=== PATIENT | male | born 1960 | race African-American/Black ===

== ENCOUNTER 2017-05-13 14:02 | Emergency (ER) | payer OTHER ==
[~2017-05-13] VITALS: Ht 165.1 cm; Wt 104.9 kg
[2017-05-13 14:42] LABS: HEMATOCRIT 41.3 % (38.0-50.0); MCH 30.5 PG (29.0-34.0); MCHC 34.4 G/DL (30.0-36.0); MCV 88.6 FL (86-99); MEAN PLAT.VOLUME 12.8 uM^3 (9.0-12.4); PLATELET COUNT 170 K/uL (156-360); RBC DIS.WIDTH-SD 45.4 % (39-53); RED BLOOD COUNT 4.66 M/uL (4.00-5.50); WHITE BLOOD COUNT 5.1 K/uL (4.1-10.2)
[2017-05-13 14:52] LABS: CHLORIDE 104 mEq/L (99-109); POTASSIUM 3.2 mEq/L (3.7-5.4)
[2017-05-13 14:53] LABS: SODIUM 145 mEq/L (136-147)
[2017-05-13 14:55] LABS: GLUCOSE 162 mg/dL (70-99)
[2017-05-13 14:56] LABS: ANION GAP 10 MEQ/L (2-14)
[2017-05-13 14:57] LABS: TOTAL BILIRUBIN 0.4 mg/dL (0.0-1.0)
[2017-05-13 14:59] LABS: UREA NITROGEN (BUN) 10 mg/dL (9-23)
[2017-05-13 15:22] LABS: ALKALINE PHOSPHATASE 63 IU/L (3-129)
[2017-05-13 15:24] LABS: GFR ESTIMATE (CALCULATED) > 59 mL/min/
[2017-05-13 16:26] LABS: SERUM ETHYL ALCOHOL < 10 mg/dL
[2017-05-13] MEDS ORDERED: GABAPENTIN300 MG PO (17:48)
[2017-05-13] MEDS ORDERED: ZOLOFT50 MG PO (17:48)
[2017-05-13] MEDS ORDERED: DIVALPROEX SOD500 MG PO (17:48)
[2017-05-13] MEDS ORDERED: MIRTAZAPINE15 MG PO (17:48)
[2017-05-13] MEDS ORDERED: NORVASC10 MG PO (17:48)
[2017-05-13] MEDS ORDERED: LISINOPRIL5 MG PO (17:48)
[2017-05-13] MEDS ORDERED: QUETIAPINE FUM200 MG PO (17:48)
[2017-05-13 18:25] VITALS: BP 136/85
== END 2017-05-13 18:27 | disposition home or self-care (01) ==
LOC: EME 14:02
DX: Z76.0 Encounter for issue of repeat prescription (principal); I10 Essential (primary) hypertension; F31.9 Bipolar disorder, unspecified; F10.21 Alcohol dependence, in remission
CPT/HCPCS: 80053; 81003; 85027; 90839; 99281; 99284; G0480

== ENCOUNTER 2017-09-30 10:32 | Emergency (ER) | payer OTHER ==
[~2017-09-30] VITALS: Ht 165.1 cm; Wt 102.8 kg
[~2017-09-30 10:32] MED LIST: DIVALPROEX SOD500 MG PO; GABAPENTIN300 MG PO; LISINOPRIL5 MG PO; MIRTAZAPINE15 MG PO; NORVASC10 MG PO; QUETIAPINE FUM200 MG PO; ZOLOFT50 MG PO
[2017-09-30 13:54] LABS: ADD MIUA? YES; BILIRUBIN NEGATIVE; BLOOD NEGATIVE; COLOR YELLOW ((YELLOW)); GLUCOSE (STRIP) NEGATIVE; KETONES 5; LEUKOCYTES NEGATIVE; NITRITE NEGATIVE; PROTEIN (STRIP) 30; SPECIFIC GRAVITY 1.016 (1.000-1.030)
[2017-09-30 13:59] LABS: BACTERIA 1+ /HPF; EPITHELIAL CELLS RARE /HPF; MUCUS TRACE /LPF; RED BLOOD CELLS 0-5 /HPF (0-5); UCUL ADDED? NO; WHITE BLOOD CELLS NONE SEEN /HPF (0-5)
[2017-09-30 14:20] LABS: MCH 30.4 PG (29.0-34.0); MCHC 34.1 G/DL (30.0-36.0); MCV 88.9 FL (86-99); MEAN PLAT.VOLUME 12.4 uM^3 (9.0-12.4); PLATELET COUNT 223 K/uL (156-360); RBC DIS.WIDTH-CV 13.2 % (11.8-14.6); RBC DIS.WIDTH-SD 43.3 % (39-53); RED BLOOD COUNT 4.61 M/uL (4.00-5.50); WHITE BLOOD COUNT 4.4 K/uL (4.1-10.2)
[2017-09-30 14:31] LABS: CHLORIDE 105 mEq/L (99-109); POTASSIUM 3.4 mEq/L (3.7-5.4); SODIUM 142 mEq/L (136-147)
[2017-09-30 14:33] LABS: GLUCOSE 99 mg/dL (70-99)
[2017-09-30 14:34] LABS: ANION GAP 12 MEQ/L (2-14)
[2017-09-30 14:35] LABS: TOTAL BILIRUBIN 0.9 mg/dL (0.0-1.0)
[2017-09-30 14:36] LABS: ALKALINE PHOSPHATASE 65 IU/L (3-129)
[2017-09-30 14:37] LABS: GFR ESTIMATE (CALCULATED) > 59 mL/min/
[2017-09-30 14:38] LABS: UREA NITROGEN (BUN) 11 mg/dL (9-23)
[2017-09-30] MEDS ORDERED: MOTRIN600 MG PO (15:52)
[2017-09-30] MEDS ORDERED: TRAMADOL HCL50 MG PO (15:52)
[2017-09-30] MEDS ORDERED: SKELAXIN800 MG PO (15:52)
[2017-09-30 15:57] VITALS: BP 155/94
== END 2017-09-30 15:57 | disposition home or self-care (01) ==
LOC: EME 10:32
PROVIDERS: Physician Assistant
DX: S29.012A Strain of muscle and tendon of back wall of thorax, initial encounter (principal); I10 Essential (primary) hypertension; E11.9 Type 2 diabetes mellitus without complications
CPT/HCPCS: 71020; 80053; 81003; 85027; 99281; 99284; J1885

== ENCOUNTER 2017-11-22 11:06 | Emergency (ER) | payer OTHER ==
[~2017-11-22] VITALS: Ht 165.1 cm; Wt 106.5 kg
[~2017-11-22 11:06] MED LIST changes: +MOTRIN600 MG PO; +SKELAXIN800 MG PO; +TRAMADOL HCL50 MG PO
[2017-11-22 12:34] LABS: HEMATOCRIT 41.3 % (38.0-50.0); HEMOGLOBIN 14.4 G/DL (12.5-16.6); MCH 30.3 PG (29.0-34.0); MCHC 34.9 G/DL (30.0-36.0); MCV 86.8 FL (86-99); PLATELET COUNT 236 K/uL (156-360); RBC DIS.WIDTH-CV 13.8 % (11.8-14.6); RBC DIS.WIDTH-SD 43.8 % (39-53); RED BLOOD COUNT 4.76 M/uL (4.00-5.50); WHITE BLOOD COUNT 4.5 K/uL (4.1-10.2)
[2017-11-22 12:49] LABS: CHLORIDE 106 mEq/L (99-109); POTASSIUM 3.3 mEq/L (3.7-5.4); SODIUM 142 mEq/L (136-147)
[2017-11-22 12:51] LABS: GLUCOSE 135 mg/dL (70-99)
[2017-11-22 12:55] LABS: APPEARANCE CLOUDY ((CLEAR)); BILIRUBIN NEGATIVE; BLOOD NEGATIVE; COLOR YELLOW ((YELLOW)); GLUCOSE (STRIP) NEGATIVE; KETONES NEGATIVE; LEUKOCYTES NEGATIVE; NITRITE NEGATIVE; PROTEIN (STRIP) NEGATIVE; SPECIFIC GRAVITY 1.017 (1.000-1.030); UROBILINOGEN 0.2 MG/DL (0.2-1.0)
[2017-11-22 12:55] LABS: CREATININE 0.9 mg/dL (0.6-1.3); GFR ESTIMATE (CALCULATED) > 59 mL/min/ (58.99-99999); UREA NITROGEN (BUN) 15 mg/dL (9-23)
[2017-11-22] MEDS ORDERED: FLEXERIL10 MG PO (13:06)
[2017-11-22] MEDS ORDERED: LIDODERM 5% P1 PATCH TD (13:06)
[2017-11-22] MEDS ORDERED: MOTRIN800 MG PO (13:06)
[2017-11-22 13:07] LABS: BACTERIA NONE SEEN /HPF; EPITHELIAL CELLS RARE /HPF; MUCUS NONE SEEN /LPF; RED BLOOD CELLS 0-5 /HPF (0-5); WHITE BLOOD CELLS 0-5 /HPF (0-5)
[2017-11-22 13:23] VITALS: BP 192/104
== END 2017-11-22 13:25 | disposition home or self-care (01) ==
LOC: EME 11:06
PROVIDERS: Nurse Practitioner Family
DX: S29.012A Strain of muscle and tendon of back wall of thorax, initial encounter (principal); X50.9XXA Other and unspecified overexertion or strenuous movements or postures, initial encounter; M19.90 Unspecified osteoarthritis, unspecified site; E78.5 Hyperlipidemia, unspecified; E11.9 Type 2 diabetes mellitus without complications; I10 Essential (primary) hypertension
CPT/HCPCS: 72070; 80048; 81003; 85027; J1885

== ENCOUNTER 2018-04-18 17:54 | Emergency (ER) | payer OTHER ==
[~2018-04-18] VITALS: Ht 165.1 cm; Wt 101.6 kg
[~2018-04-18 17:54] MED LIST changes: +FLEXERIL10 MG PO; +LIDODERM 5% P1 PATCH TD; +MOTRIN800 MG PO
[2018-04-18 20:05] LABS: HEMATOCRIT 41.2 % (38.0-50.0); HEMOGLOBIN 14.5 G/DL (12.5-16.6); MCH 30.5 PG (29.0-34.0); MCHC 35.2 G/DL (30.0-36.0); MCV 86.7 FL (86-99); PLATELET COUNT 246 K/uL (156-360); RBC DIS.WIDTH-CV 13.7 % (11.8-14.6); RBC DIS.WIDTH-SD 42.8 % (39-53); RED BLOOD COUNT 4.75 M/uL (4.00-5.50); WHITE BLOOD COUNT 6.9 K/uL (4.1-10.2)
[2018-04-18 20:16] LABS: ALBUMIN 4.2 g/dL (3.2-4.8)
[2018-04-18 20:17] LABS: CHLORIDE 104 mEq/L (99-109); POTASSIUM 3.1 mEq/L (3.7-5.4); SODIUM 142 mEq/L (136-147)
[2018-04-18 20:19] LABS: GLUCOSE 102 mg/dL (70-99); TOTAL PROTEIN 7.5 g/dL (6.4-8.3)
[2018-04-18 20:21] LABS: TOTAL BILIRUBIN 0.6 mg/dL (0.0-1.0)
[2018-04-18 20:22] LABS: ALKALINE PHOSPHATASE 77 IU/L (3-129); GFR ESTIMATE (CALCULATED) > 59 mL/min/ (58.99-99999)
[2018-04-18 20:24] LABS: AST (GOT) 18 IU/L (2-34); UREA NITROGEN (BUN) 13 mg/dL (9-23)
[2018-04-18 20:25] LABS: ALT (GPT) 18 IU/L (3-49)
[2018-04-18 20:26] LABS: LIPASE 42 U/L (1.0-51.0)
[2018-04-18] MEDS ORDERED: OMEPRAZOLE40 M1 PO (20:42)
[2018-04-18 20:56] VITALS: BP 159/95
== END 2018-04-18 20:59 | disposition home or self-care (01) ==
LOC: EME 17:54
PROVIDERS: Physician Assistant
DX: R04.0 Epistaxis (principal); R10.13 Epigastric pain; F32.9 Major depressive disorder, single episode, unspecified; I10 Essential (primary) hypertension
CPT/HCPCS: 80053; 83690; 85027; 99281; 99283

== ENCOUNTER 2018-05-02 19:33 | Emergency (ER) | payer OTHER ==
[~2018-05-02] VITALS: Ht 165.1 cm; Wt 102.2 kg
[~2018-05-02 19:33] MED LIST changes: +OMEPRAZOLE40 M1 PO
[2018-05-02 20:05] LABS: APPEARANCE CLEAR ((CLEAR)); BILIRUBIN NEGATIVE; BLOOD SMALL; COLOR YELLOW ((YELLOW)); GLUCOSE (STRIP) NEGATIVE; KETONES NEGATIVE; LEUKOCYTES SMALL; NITRITE NEGATIVE; PROTEIN (STRIP) NEGATIVE; SPECIFIC GRAVITY 1.011 (1.000-1.030); UROBILINOGEN 0.2 MG/DL (0.2-1.0)
[2018-05-02 20:05] LABS: HEMATOCRIT 38.2 % (38.0-50.0); HEMOGLOBIN 13.5 G/DL (12.5-16.6); MCH 30.7 PG (29.0-34.0); MCHC 35.3 G/DL (30.0-36.0); MCV 86.8 FL (86-99); PLATELET COUNT 291 K/uL (156-360); RBC DIS.WIDTH-CV 13.9 % (11.8-14.6); RBC DIS.WIDTH-SD 43.9 % (39-53); WHITE BLOOD COUNT 6.7 K/uL (4.1-10.2)
[2018-05-02 20:09] LABS: BACTERIA NONE SEEN /HPF; EPITHELIAL CELLS RARE /HPF; HYALINE CASTS 0-5 /LPF; MUCUS TRACE /LPF; RED BLOOD CELLS 0-5 /HPF (0-5); UCUL ADDED? YES
[2018-05-02 20:16] LABS: CHLORIDE 107 mEq/L (99-109); POTASSIUM 3.9 mEq/L (3.7-5.4); SODIUM 143 mEq/L (136-147)
[2018-05-02 20:18] LABS: GLUCOSE 119 mg/dL (70-99); TOTAL PROTEIN 7.3 g/dL (6.4-8.3)
[2018-05-02 20:20] LABS: TOTAL BILIRUBIN 0.4 mg/dL (0.0-1.0)
[2018-05-02 20:22] LABS: ALKALINE PHOSPHATASE 79 IU/L (3-129); GFR ESTIMATE (CALCULATED) > 59 mL/min/ (58.99-99999)
[2018-05-02 20:23] LABS: UREA NITROGEN (BUN) 8 mg/dL (9-23)
[2018-05-02 20:24] LABS: AST (GOT) 22 IU/L (2-34)
[2018-05-02 20:25] LABS: ALT (GPT) 18 IU/L (3-49); LIPASE 60 U/L (1.0-51.0)
[2018-05-02 21:02] LABS: CREATINE KINASE 434 IU/L (1-294); TOTAL CK 434 IU/L (1-294)
[2018-05-02 21:07] LABS: CKMB RELATIVE INDEX 0.7 (0.0-3.9)
[2018-05-02 21:15] LABS: AMPHETAMINE NEGATIVE (500 ng/mL); BARBITURATES NEGATIVE (200 ng/mL); BENZODIAZEPINES NEGATIVE (150 ng/mL); BUPRENORPHINE NEGATIVE (10 ng/mL); COCAINE NEGATIVE (150 ng/mL); METHADONE NEGATIVE (200 ng/mL); METHAMPHETAMINE NEGATIVE (500 ng/mL); OPIATES (MORPHINE) NEGATIVE (100 ng/mL); OXYCODONE NEGATIVE (100 ng/mL); PHENCYCLIDINE NEGATIVE (25 ng/mL); PROPOXYPHENE NEGATIVE (300 ng/mL); THC CANNABINOIDS NEGATIVE (50 ng/mL); TRICYCLIC ANTIDEPRESSANTS NEGATIVE (300 ng/mL)
[2018-05-02] MEDS ORDERED: KEFLEX500 MG PO (21:50)
[2018-05-02] MEDS ORDERED: ZOFRAN4 MG PO (21:50)
[2018-05-02] MEDS ORDERED: BENTYL20 MG PO (21:50)
[2018-05-02 22:30] VITALS: BP 128/76
== END 2018-05-02 23:08 | disposition home or self-care (01) ==
LOC: EME 19:33
PROVIDERS: Nurse Practitioner Family
DX: R10.9 Unspecified abdominal pain (principal); R11.2 Nausea with vomiting, unspecified; M47.895 Other spondylosis, thoracolumbar region; R93.5 Abnormal findings on diagnostic imaging of other abdominal regions, including retroperitoneum; I10 Essential (primary) hypertension; F32.9 Major depressive disorder, single episode, unspecified; F31.9 Bipolar disorder, unspecified; F39 Unspecified mood [affective] disorder; Z90.5 Acquired absence of kidney
CPT/HCPCS: 74176; 80053; 81003; 82550; 82553; 83690; 85027; 87086; 99281; 99284; J1885; J2405; J7030

== ENCOUNTER 2018-05-08 21:25 | Emergency (ER) | payer OTHER ==
[~2018-05-08] VITALS: Ht 165.1 cm; Wt 100.0 kg
[~2018-05-08 21:25] MED LIST changes: +BENTYL20 MG PO; +KEFLEX500 MG PO; +ZOFRAN4 MG PO
[2018-05-08 22:59] LABS: HEMATOCRIT 35.9 % (38.0-50.0); HEMOGLOBIN 12.4 G/DL (12.5-16.6); MCH 30.9 PG (29.0-34.0); MCHC 34.5 G/DL (30.0-36.0); MCV 89.5 FL (86-99); PLATELET COUNT 216 K/uL (156-360); RBC DIS.WIDTH-CV 14.5 % (11.8-14.6); RBC DIS.WIDTH-SD 46.1 % (39-53); RED BLOOD COUNT 4.01 M/uL (4.00-5.50); WHITE BLOOD COUNT 5.9 K/uL (4.1-10.2)
[2018-05-08 23:01] LABS: LIPASE 44 U/L (1.0-51.0)
[2018-05-08 23:22] LABS: APPEARANCE SL.HAZY ((CLEAR)); BILIRUBIN NEGATIVE; BLOOD NEGATIVE; COLOR YELLOW ((YELLOW)); GLUCOSE (STRIP) NEGATIVE; KETONES NEGATIVE; LEUKOCYTES NEGATIVE; NITRITE NEGATIVE; PROTEIN (STRIP) NEGATIVE; SPECIFIC GRAVITY 1.016 (1.000-1.030)
[2018-05-08 23:24] LABS: ALBUMIN 3.8 g/dL (3.2-4.8)
[2018-05-08 23:25] LABS: MAGNESIUM 2.4 mg/dL (1.3-2.7)
[2018-05-08 23:27] LABS: TOTAL PROTEIN 6.5 g/dL (6.4-8.3)
[2018-05-08 23:30] LABS: ALKALINE PHOSPHATASE 76 IU/L (3-129)
[2018-05-08 23:32] LABS: AST (GOT) 17 IU/L (2-34)
[2018-05-08 23:33] LABS: ALT (GPT) 13 IU/L (3-49); DIRECT BILIRUBIN 0.3 mg/dL (0.0-0.3)
[2018-05-08 23:38] LABS: BACTERIA RARE /HPF; EPITHELIAL CELLS 1+ /HPF; HYALINE CASTS 0-5 /LPF; MUCUS 4+ /LPF; RED BLOOD CELLS 0-5 /HPF (0-5); UCUL ADDED? NO; WHITE BLOOD CELLS 0-5 /HPF (0-5)
[2018-05-08 23:39] LABS: TROP-I INTERPRETATION NEGATIVE; TROPONIN-I 0.01 ng/mL (0.0-0.30)
[2018-05-08 23:46] LABS: TOTAL BILIRUBIN 0.7 mg/dL (0.0-1.0)
[2018-05-09] MEDS ORDERED: PEPCID20 MG PO (00:43)
[2018-05-09 01:21] LABS: TROP-I INTERPRETATION NEGATIVE; TROPONIN-I < 0.01 ng/mL (0.0-0.30)
[2018-05-09 01:42] VITALS: BP 147/92
== END 2018-05-09 01:42 | disposition home or self-care (01) ==
LOC: EME → EDSEX 21:25 → EME 21:25 → EDBD 21:25 → EME 05-09 01:42
PROVIDERS: Emergency Medicine
DX: R07.89 Other chest pain (principal); I10 Essential (primary) hypertension; F31.9 Bipolar disorder, unspecified; F32.9 Major depressive disorder, single episode, unspecified
CPT/HCPCS: 71046; 80076; 81003; 82310; 83690; 83735; 84484; 85027; 93005; 99281; 99285; J1885; J7030; S0028

== ENCOUNTER 2018-05-24 13:45 | Emergency (ER) | payer OTHER ==
[~2018-05-24] VITALS: Ht 165.1 cm; Wt 97.7 kg
[~2018-05-24 13:45] MED LIST changes: +PEPCID20 MG PO
[2018-05-24 14:17] LABS: APPEARANCE CLOUDY ((CLEAR)); BILIRUBIN NEGATIVE; BLOOD SMALL; COLOR YELLOW ((YELLOW)); GLUCOSE (STRIP) NEGATIVE; KETONES NEGATIVE; LEUKOCYTES LARGE; NITRITE POSITIVE; PROTEIN (STRIP) 100; SPECIFIC GRAVITY 1.026 (1.000-1.030)
[2018-05-24 14:48] LABS: RED BLOOD CELLS RARE /HPF (0-5); WHITE BLOOD CELLS 40-50 /HPF (0-5)
[2018-05-24 14:49] LABS: BACTERIA 3+ /HPF; EPITHELIAL CELLS RARE /HPF; MUCUS NONE SEEN /LPF
[2018-05-24 14:59] LABS: HEMATOCRIT 37.2 % (38.0-50.0); HEMOGLOBIN 12.9 G/DL (12.5-16.6); MCHC 34.7 G/DL (30.0-36.0); MCV 89.4 FL (86-99); RBC DIS.WIDTH-CV 15.7 % (11.8-14.6); RBC DIS.WIDTH-SD 51.8 % (39-53); RED BLOOD COUNT 4.16 M/uL (4.00-5.50); WHITE BLOOD COUNT 7.8 K/uL (4.1-10.2)
[2018-05-24 15:02] LABS: PLATELET COUNT 298 K/uL (156-360)
[2018-05-24 15:11] LABS: ALBUMIN 3.7 g/dL (3.2-4.8); CHLORIDE 108 mEq/L (99-109); POTASSIUM 3.3 mEq/L (3.7-5.4); SODIUM 145 mEq/L (136-147)
[2018-05-24 15:13] LABS: GLUCOSE 110 mg/dL (70-99); TOTAL PROTEIN 6.9 g/dL (6.4-8.3)
[2018-05-24 15:15] LABS: TOTAL BILIRUBIN 0.4 mg/dL (0.0-1.0)
[2018-05-24 15:17] LABS: ALKALINE PHOSPHATASE 75 IU/L (3-129); CREATININE 0.9 mg/dL (0.6-1.3); GFR ESTIMATE (CALCULATED) > 59 mL/min/ (58.99-99999)
[2018-05-24 15:18] LABS: UREA NITROGEN (BUN) 14 mg/dL (9-23)
[2018-05-24 15:19] LABS: AST (GOT) 10 IU/L (2-34)
[2018-05-24 15:20] LABS: ALT (GPT) 9 IU/L (3-49); LIPASE 42 U/L (1.0-51.0)
[2018-05-24] MEDS ORDERED: CIPRO500 MG PO (16:55)
[2018-05-24] MEDS ORDERED: PYRIDIUM100 MG PO (16:55)
[2018-05-24 17:02] VITALS: BP 168/98
== END 2018-05-24 17:03 | disposition home or self-care (01) ==
LOC: EME 13:45
PROVIDERS: Nurse Practitioner Family; Physician Assistant
DX: N39.0 Urinary tract infection, site not specified (principal); I10 Essential (primary) hypertension
CPT/HCPCS: 74176; 80053; 81003; 83690; 85027; 99281; 99284